=== PATIENT | male | born 1935 | race Caucasian/White ===

== ENCOUNTER 2023-04-02 10:36 | Emergency (ER) | payer OTHER, MEDICARE ==
[~2023-04-02] VITALS: Ht 170.2 cm; Wt 87.1 kg
[2023-04-02 10:39] VITALS: BP_SYST 128; PULSE 60; RESP 17; TEMP 98; O2SAT 98
[2023-04-02] MEDS ORDERED: TRAM50TA2 PO (12:23)
[2023-04-02] MEDS ORDERED: IBUP-1969 PO (12:23)
[2023-04-02 12:44] VITALS: BP_SYST 128; PULSE 60; RESP 17; TEMP 98; O2SAT 98
== END 2023-04-02 12:43 | disposition home or self-care (01) ==
LOC: SED 10:36
DX: S43.401A Unspecified sprain of right shoulder joint, initial encounter (principal); Z79.899 Other long term (current) drug therapy; W01.0XXA Fall on same level from slipping, tripping and stumbling without subsequent striking against object, initial encounter; Y93.89 Activity, other specified; Y92.89 Other specified places as the place of occurrence of the external cause; Y99.8 Other external cause status
CPT/HCPCS: 73030; 99283